=== PATIENT | male | born 1945 | race Caucasian/White ===

== ENCOUNTER 2025-03-04 02:29 | Inpatient (IN) | payer SELFPAY ==
[2025-03-04] VITALS (53 sets, daily range): BP systolic 85–163; BP diastolic 62–115; PULSE 57–71; RESP 10–23; TEMP 36.4–37.0296; O2SAT 93–99
[~2025-03-04] VITALS: Ht 162.6 cm; Wt 64.2 kg
[2025-03-04] MEDS: LEVETIRACETAM 1000MG PREMIX 100 ML IV ONE (03:07)
[2025-03-04] MEDS: LORAZEPAM 2MG/ML UD SYRINGE IV NR (03:08)
[2025-03-04 03:31] LABS: BASOPHILS % 0.3 % (0.0-2.0); EOSINOPHILS % 0.2 % (0.0-5.0); HEMATOCRIT. 49.9 % (42.0-52.0); HEMOGLOBIN. 15.9 g/dL (14.0-18.0); LYMPHOCYTES % 36.1 % (20.0-50.0); MEAN PLATELET VOLUME 10.7 fl (7.4-10.4); MONOCYTES % 8.2 % (2.0-8.0); NEUTROPHILS % 55.2 % (40.0-76.0); PLATELET 133 x1000/uL (130-400); RED BLOOD CELL COUNT 4.66 mill/uL (4.7-6.1); RED CELL DISTRIBUTION WIDTH 14.8 % (11.6-14.6)
[2025-03-04 03:39] LABS: CREATININE 2.5 mg/dL (0.6-1.3); INR 1.1; UREA NITROGEN BLOOD 25 mg/dL (9-23)
[2025-03-04 03:40] LABS: TROPONIN I HIGH SENSITIVITY 31 ng/L (3.0-53)
[2025-03-04 03:41] LABS: ASPARTATE AMINOTRANSFERASE 48 IU/L (<34); BILIRUBIN DIRECT 0.3 mg/dL (<=3.0)
[2025-03-04 03:42] LABS: BILIRUBIN TOTAL 0.9 mg/dL (0.1-1.0); PHOSPHORUS 3.1 mg/dL (2.5-4.9); PROTEIN TOTAL 7.4 g/dL (6.0-8.3)
[2025-03-04 04:13] LABS: BG BASE EXCESS -3.5 mmol/L (-2.0-3.0); BG CARBOXYHEMOGLOBIN 1.4 % (0.5-1.5); BG DEOXYHEMOGLOBIN 3.9 % (0.0-5.0); BG HCO3 ACT 23.0 mmol/L (21.0-28.0); BG METHEMOGLOBIN 0.1 % (0.5-1.5); BG OXYGEN SATURATION 96.0 % (94.0-98.0); BG OXYHEMOGLOBIN 94.6 % (94.0-98.0); BG PCO2 46.7 mmHg (35.0-48.0); BG PH 7.311 (7.350-7.450); BG PO2 92.0 mmHg (83.0-108.0); BG SAMPLE SITE RIGHT RADIAL; BG TOTAL HEMOGLOBIN 15.5 g/dL (13.5-17.5); BG VENT MODE ROOM AIR
[2025-03-04] MEDS: SODIUM CHLORIDE 0.9% (SEPSIS BOLUS) IV NR (04:56)
[2025-03-04] MEDS: PIPERACILLIN/TAZO 3.375G/50ML 50 ML IV NR (04:56)
[2025-03-04 04:57] LABS: INFLUENZA TYPE A Presumptive Negative (Pres. Neg.)
[2025-03-04] MEDS: KCL 20MEQ/100ML PREMIX 100 ML IV SCH (04:57)
[2025-03-04 04:58] LABS: INFLUENZA TYPE B Presumptive Negative (Pres. Neg.); RESPIRATORY SYNCYTIAL VIRUS Not Detected (Not Detectd)
[2025-03-04] MEDS: VANCOMYCIN 1G PREMIX 200 ML IV NR (06:00)
[2025-03-04] MEDS ORDERED: MAGNESIUM 2 G PREMIX 50 ML IV PRN (08:15)
[2025-03-04] MEDS ORDERED: BLOOD SUGAR DIAGNOSTIC STRIP TEST PRN (08:15)
[2025-03-04] MEDS ORDERED: DEXTROSE 50% WATER 50ML SYRINGE IV PRN (08:15)
[2025-03-04] MEDS: SODIUM CHLORIDE 0.9% 1,000 ML IV SCH (08:29)
[2025-03-04] MEDS: BLOOD SUGAR DIAGNOSTIC STRIP TEST SCH (08:30)
[2025-03-04 08:42] LABS: BG BASE EXCESS 0.9 mmol/L (-2.0-3.0); BG CARBOXYHEMOGLOBIN 0.2 % (0.5-1.5); BG DEOXYHEMOGLOBIN 5.6 % (0.0-5.0); BG FRACTION INSPIRED OXYGEN 21; BG HCO3 ACT 26.2 mmol/L (21.0-28.0); BG METHEMOGLOBIN 0.3 % (0.5-1.5); BG OXYGEN SATURATION 94.4 % (94.0-98.0); BG OXYHEMOGLOBIN 93.9 % (94.0-98.0); BG PCO2 43.7 mmHg (35.0-48.0); BG PH 7.395 (7.350-7.450); BG PO2 77.1 mmHg (83.0-108.0); BG SAMPLE SITE LEFT BRACHIAL; BG TOTAL HEMOGLOBIN 15.4 g/dL (13.5-17.5); BG VENT MODE ROOM AIR
[2025-03-04] MEDS ORDERED: IPRATROPIUM/ALBUTEROL 0.5-3(2.5)MG/3ML NEB HHN PRN (09:15)
[2025-03-04] MEDS ORDERED: DOCUSATE SODIUM 100MG CAPSULE PO PRN (09:15)
[2025-03-04] MEDS ORDERED: ENOXAPARIN 80MG/0.8ML SYR SUBCUT SCH (10:00)
[2025-03-04 11:45] LABS: CLARITY URINE CLEAR (CLEAR); COLOR URINE YELLOW (YELLOW); GLUCOSE URINE 3+ (NEGATIVE); KETONES URINE NEGATIVE (NEGATIVE); LEUKOCYTE ESTERASE URINE NEGATIVE (NEGATIVE); NITRITE URINE NEGATIVE (NEGATIVE); OCCULT BLOOD URINE NEGATIVE (NEGATIVE); PH URINE 7.5 (4.5-8.0); PROTEIN URINE NEGATIVE (NEGATIVE); SPECIFIC GRAVITY URINE 1.016 (1.005-1.030); UROBILINOGEN URINE 0.2 E.U./dL (0.2-1.0)
[2025-03-04 11:53] LABS: TROPONIN I HIGH SENSITIVITY 100 ng/L (3.0-53)
[2025-03-04 12:42] LABS: *AMPHETAMINES SCREEN URINE NEGATIVE (NEGATIVE); *BARBITURATES SCREEN URINE NEGATIVE (NEGATIVE); *BENZODIAZEPINES SCREEN URINE NEGATIVE (NEGATIVE); *COCAINE SCREEN URINE NEGATIVE (NEGATIVE); CANNABINOID URINE SCREEN NEGATIVE (NEGATIVE); METHADONE URINE SCREEN NEGATIVE (NEGATIVE); OPIATES URINE SCREEN NEGATIVE (NEGATIVE); PHENCYCLIDINE URINE SCREEN NEGATIVE (NEGATIVE)
[2025-03-04 12:43] LABS: ECSTASY MDMA SCREEN URINE NEGATIVE (NEGATIVE)
[2025-03-04 12:46] LABS: RBC URINE NONE SEEN /hpf (0-2); SQUAMOUS EPITHELIAL CELL URINE RARE /lpf (RARE/1+); WBC URINE NONE SEEN /hpf (0-2)
[2025-03-04 12:47] LABS: BACTERIA URINE NONE SEEN
[2025-03-04 13:21] LABS: CREATININE 2.0 mg/dL (0.6-1.3); UREA NITROGEN BLOOD 23.0 mg/dL (9-23)
[2025-03-04 13:22] LABS: CREATINE KINASE MB FRACTION 3.3 ng/mL (0.5-3.6)
[2025-03-04 13:33] LABS: BASOPHILS % 0.4 % (0.0-2.0); EOSINOPHILS % 0.4 % (0.0-5.0); HEMATOCRIT. 43.6 % (42.0-52.0); HEMOGLOBIN. 14.9 g/dL (14.0-18.0); LYMPHOCYTES % 14.1 % (20.0-50.0); MEAN PLATELET VOLUME 9.9 fl (7.4-10.4); MONOCYTES % 8.6 % (2.0-8.0); NEUTROPHILS % 76.5 % (40.0-76.0); PLATELET 104 x1000/uL (130-400); RED BLOOD CELL COUNT 4.31 mill/uL (4.7-6.1); RED CELL DISTRIBUTION WIDTH 14.2 % (11.6-14.6)
[2025-03-04] MEDS: KCL 20MEQ/100ML PREMIX 100 ML IV PRN (13:56)
[2025-03-04] MEDS: INSULIN REGULAR 100U/100ML PMX 100 ML IV SCH (13:57)
[2025-03-04] MEDS: DILTIAZEM HCL 30MG TABLET PO SCH (13:59)
[2025-03-04] MEDS: PANTOPRAZOLE SODIUM 40 MG/VIAL IV SCH (14:05)
[2025-03-04] MEDS: ENOXAPARIN 80MG/0.8ML SYR SUBCUT SCH (14:05)
[2025-03-04] MEDS ORDERED: ALLO300T2 MT (14:23)
[2025-03-04] MEDS ORDERED: METH4TAB MT (14:23)
[2025-03-04] MEDS ORDERED: ASPI-1497 MT (14:23)
[2025-03-04 16:34] LABS: PHOSPHORUS 1.4 mg/dL (2.5-4.9)
[2025-03-04] MEDS: DEXT 5%/0.9% NACL 1,000 ML IV SCH (16:48)
[2025-03-04] MEDS: MAGNESIUM 2 G PREMIX 50 ML IV PRN (16:54)
[2025-03-04] MEDS: SODIUM PHOSPHATE 15 MMOL in SODIUM CHLORIDE 0.9% 245 ML IV PRN (18:48)
[2025-03-05] VITALS (87 sets, daily range): BP systolic 97–154; BP diastolic 60–110; PULSE 63–105; RESP 10–26; TEMP 36.7–37.1; O2SAT 95–100
[2025-03-05 02:53] LABS: CREATININE 1.4 mg/dL (0.6-1.3); UREA NITROGEN BLOOD 17.0 mg/dL (9-23)
[2025-03-05 02:54] LABS: PHOSPHORUS 2.3 mg/dL (2.5-4.9)
[2025-03-05] MEDS ORDERED: SODIUM PHOSPHATE 15 MMOL in SODIUM CHLORIDE 0.9% 245 ML IV PRN (04:00)
[2025-03-05] MEDS: POTASSIUM CHLORIDE 40 MEQ in SODIUM CHLORIDE 0.9% 230 ML IV PRN (04:07)
[2025-03-05 05:51] LABS: BASOPHILS % 0.5 % (0.0-2.0); EOSINOPHILS % 0.6 % (0.0-5.0); HEMATOCRIT. 39.6 % (42.0-52.0); HEMOGLOBIN. 13.8 g/dL (14.0-18.0); LYMPHOCYTES % 18.9 % (20.0-50.0); MEAN PLATELET VOLUME 9.4 fl (7.4-10.4); MONOCYTES % 9.6 % (2.0-8.0); NEUTROPHILS % 70.4 % (40.0-76.0); PLATELET 106 x1000/uL (130-400); RED BLOOD CELL COUNT 3.96 mill/uL (4.7-6.1); RED CELL DISTRIBUTION WIDTH 14.5 % (11.6-14.6)
[2025-03-05 05:58] LABS: INR 1.1
[2025-03-05 06:10] LABS: CREATININE 1.3 mg/dL (0.6-1.3); PHOSPHORUS 2.0 mg/dL (2.5-4.9)
[2025-03-05 06:11] LABS: LDL CHOLESTEROL 73 mg/dL (5-100); TRIGLYCERIDE 358 mg/dL (0-150); UREA NITROGEN BLOOD 11 mg/dL (9-23)
[2025-03-05 06:12] LABS: ASPARTATE AMINOTRANSFERASE 58 IU/L (<34)
[2025-03-05 06:13] LABS: BILIRUBIN DIRECT 0.5 mg/dL (<=3.0); BILIRUBIN TOTAL 1.2 mg/dL (0.1-1.0)
[2025-03-05 06:20] LABS: TROPONIN I HIGH SENSITIVITY 58 ng/L (3.0-53)
[2025-03-05 07:03] LABS: PROTEIN TOTAL 4.8 g/dL (6.0-8.3)
[2025-03-05] MEDS: BLOOD SUGAR DIAGNOSTIC STRIP TEST SCH (08:39)
[2025-03-05 09:57] LABS: CREATININE 1.3 mg/dL (0.6-1.3); UREA NITROGEN BLOOD 10 mg/dL (9-23)
[2025-03-05 09:59] LABS: PHOSPHORUS 1.1 mg/dL (2.5-4.9)
[2025-03-05 15:50] LABS: CREATININE 1.2 mg/dL (0.6-1.3); UREA NITROGEN BLOOD 7 mg/dL (9-23)
[2025-03-05 15:52] LABS: PHOSPHORUS 1.1 mg/dL (2.5-4.9)
[2025-03-05 17:00] LABS: PHOSPHORUS 1.3 mg/dL (2.5-4.9)
[2025-03-05] MEDS: MAGNESIUM 2 G PREMIX 50 ML IV PRN (17:39)
[2025-03-05 23:43] LABS: PHOSPHORUS 1.5 mg/dL (2.5-4.9)
[2025-03-06] VITALS (86 sets, daily range): BP systolic 86–133; BP diastolic 58–93; PULSE 81–99; RESP 12–26; TEMP 36.2–36.8; O2SAT 93–98
[2025-03-06 04:30] LABS: CREATININE 1.3 mg/dL (0.6-1.3); UREA NITROGEN BLOOD 7 mg/dL (9-23)
[2025-03-06 04:32] LABS: PHOSPHORUS 1.9 mg/dL (2.5-4.9)
[2025-03-06] MEDS: ACETAMINOPHEN 325MG TABLET PO PRN (05:07)
[2025-03-06] MEDS: SODIUM PHOSPHATE 15 MMOL in SODIUM CHLORIDE 0.9% 245 ML IV PRN (06:26)
[2025-03-06 18:24] LABS: CREATININE 1.3 mg/dL (0.6-1.3); UREA NITROGEN BLOOD < 5 mg/dL (9-23)
[2025-03-06 20:53] LABS: CREATININE 1.3 mg/dL (0.6-1.3); UREA NITROGEN BLOOD < 5 mg/dL (9-23)
[2025-03-07] VITALS (98 sets, daily range): BP systolic 72–132; BP diastolic 16–88; PULSE 75–111; RESP 11–26; TEMP 36.6–37.2; O2SAT 92–98
[2025-03-07 06:11] LABS: CREATININE 1.4 mg/dL (0.6-1.3); UREA NITROGEN BLOOD 6.0 mg/dL (9-23)
[2025-03-07 06:42] LABS: PHOSPHORUS 0.8 mg/dL (2.5-4.9)
[2025-03-07] MEDS: INSULIN GLARGINE 100 UNITS/ML SUBCUT SCH (11:59)
[2025-03-07 15:00] LABS: CREATININE 1.4 mg/dL (0.6-1.3); UREA NITROGEN BLOOD < 5 mg/dL (9-23)
[2025-03-07 15:02] LABS: PHOSPHORUS 1.8 mg/dL (2.5-4.9)
[2025-03-07] MEDS ORDERED: SODIUM PHOSPHATE 15 MMOL in DEXT 5% WATER 245 ML IV PRN (16:00)
[2025-03-07] MEDS ORDERED: KCL 20MEQ/100ML PREMIX 100 ML IV ONE (16:00)
[2025-03-07] MEDS: KCL 20MEQ/100ML PREMIX 100 ML IV PRN (16:56)
[2025-03-07 17:23] LABS: CREATININE 1.5 mg/dL (0.6-1.3)
[2025-03-07 17:24] LABS: UREA NITROGEN BLOOD 5 mg/dL (9-23)
[2025-03-07 17:26] LABS: PHOSPHORUS 1.3 mg/dL (2.5-4.9)
[2025-03-07 18:51] LABS: CREATININE 1.4 mg/dL (0.6-1.3); UREA NITROGEN BLOOD < 5 mg/dL (9-23)
[2025-03-07] MEDS: SODIUM PHOSPHATE 15 MMOL in SODIUM CHLORIDE 0.9% 245 ML IV PRN (20:18)
[2025-03-08] VITALS (93 sets, daily range): BP systolic 96–170; BP diastolic 57–91; PULSE 72–94; RESP 13–28; TEMP 36.2–37.8; O2SAT 84–98
[2025-03-08 00:50] LABS: PLATELET 108 x1000/uL (130-400); RED BLOOD CELL COUNT 3.26 mill/uL (4.7-6.1); RED CELL DISTRIBUTION WIDTH 14.9 % (11.6-14.6)
[2025-03-08 01:04] LABS: CREATININE 1.4 mg/dL (0.6-1.3); UREA NITROGEN BLOOD < 5 mg/dL (9-23)
[2025-03-08 01:06] LABS: PHOSPHORUS 1.6 mg/dL (2.5-4.9)
[2025-03-08] MEDS: DEXT 5%/0.9% NACL 1,000 ML IV SCH (01:20)
[2025-03-08] MEDS: ONDANSETRON HCL 4MG/2ML INJ IV PRN (01:47)
[2025-03-08 05:59] LABS: PHOSPHORUS 1.6 mg/dL (2.5-4.9)
[2025-03-08] MEDS: INSULIN REGULAR 100U/100ML PMX 100 ML IV SCH (06:13)
[2025-03-08 06:54] LABS: CREATININE 1.4 mg/dL (0.6-1.3); UREA NITROGEN BLOOD < 5 mg/dL (9-23)
[2025-03-08] MEDS: POTASSIUM CHLORIDE 40 MEQ in SODIUM CHLORIDE 0.9% 250 ML IV PRN (08:25)
[2025-03-08 11:01] LABS: BASOPHILS % 0.3 % (0.0-2.0); EOSINOPHILS % 0.6 % (0.0-5.0); HEMATOCRIT. 36.5 % (42.0-52.0); HEMOGLOBIN. 12.4 g/dL (14.0-18.0); LYMPHOCYTES % 11.9 % (20.0-50.0); MEAN PLATELET VOLUME 9.9 fl (7.4-10.4); MONOCYTES % 11.9 % (2.0-8.0); NEUTROPHILS % 75.3 % (40.0-76.0); PLATELET 124 x1000/uL (130-400); RED BLOOD CELL COUNT 3.53 mill/uL (4.7-6.1); RED CELL DISTRIBUTION WIDTH 15.0 % (11.6-14.6)
[2025-03-08 11:22] LABS: CREATININE 1.4 mg/dL (0.6-1.3)
[2025-03-08 11:23] LABS: UREA NITROGEN BLOOD < 5 mg/dL (9-23)
[2025-03-08 11:25] LABS: PHOSPHORUS 1.8 mg/dL (2.5-4.9)
[2025-03-08] MEDS ORDERED: LIDOCAINE HCL 1% 10 MG/ML 10ML VIAL ONE (12:33)
[2025-03-08 13:48] LABS: CREATININE 1.3 mg/dL (0.6-1.3); UREA NITROGEN BLOOD < 5 mg/dL (9-23)
[2025-03-08 13:51] LABS: PHOSPHORUS 1.6 mg/dL (2.5-4.9)
[2025-03-08] MEDS: SODIUM PHOSPHATE 15 MMOL in SODIUM CHLORIDE 0.9% 245 ML IV PRN (14:33)
[2025-03-08] MEDS: FAMOTIDINE 20MG/2ML VIAL IV SCH (17:11)
[2025-03-08 19:30] LABS: CREATININE 1.3 mg/dL (0.6-1.3); TROPONIN I HIGH SENSITIVITY 12 ng/L (3.0-53); UREA NITROGEN BLOOD < 5 mg/dL (9-23)
[2025-03-08 19:32] LABS: PHOSPHORUS 2.1 mg/dL (2.5-4.9)
[2025-03-08] MEDS: ACETAMINOPHEN 325MG TABLET PO PRN (19:57)
[2025-03-09] VITALS (76 sets, daily range): BP systolic 112–159; BP diastolic 53–93; PULSE 70–89; RESP 12–29; TEMP 36.7–37.6; O2SAT 90–99
[2025-03-09 01:17] LABS: CREATININE 1.3 mg/dL (0.6-1.3)
[2025-03-09 01:18] LABS: UREA NITROGEN BLOOD < 5 mg/dL (9-23)
[2025-03-09 01:20] LABS: PHOSPHORUS 2.6 mg/dL (2.5-4.9)
[2025-03-09] MEDS: MAGNESIUM 2 G PREMIX 50 ML IV PRN (01:57)
[2025-03-09 05:09] LABS: CREATININE 1.3 mg/dL (0.6-1.3)
[2025-03-09 05:10] LABS: UREA NITROGEN BLOOD < 5 mg/dL (9-23)
[2025-03-09 05:12] LABS: PHOSPHORUS 2.4 mg/dL (2.5-4.9)
[2025-03-09 09:16] LABS: CREATININE 1.3 mg/dL (0.6-1.3); UREA NITROGEN BLOOD < 5 mg/dL (9-23)
[2025-03-09 09:18] LABS: PHOSPHORUS 2.4 mg/dL (2.5-4.9)
[2025-03-09 09:39] LABS: CREATININE 1.3 mg/dL (0.6-1.3); UREA NITROGEN BLOOD < 5 mg/dL (9-23)
[2025-03-09] MEDS: INSULIN GLARGINE 100 UNITS/ML SUBCUT SCH (10:31)
[2025-03-09 11:13] LABS: PHOSPHORUS 2.3 mg/dL (2.5-4.9)
[2025-03-09 13:24] LABS: CREATININE 1.3 mg/dL (0.6-1.3); UREA NITROGEN BLOOD < 5 mg/dL (9-23)
[2025-03-09 13:26] LABS: PHOSPHORUS 2.1 mg/dL (2.5-4.9)
[2025-03-09] MEDS: IPRATROPIUM/ALBUTEROL 0.5-3(2.5)MG/3ML NEB HHN PRN (16:22)
[2025-03-09] MEDS: FAMOTIDINE 20MG/2ML VIAL IV SCH (17:04)
[2025-03-09 17:11] LABS: CREATININE 1.3 mg/dL (0.6-1.3); UREA NITROGEN BLOOD < 5 mg/dL (9-23)
[2025-03-09 17:13] LABS: PHOSPHORUS 1.8 mg/dL (2.5-4.9)
[2025-03-09 21:43] LABS: CREATININE 1.3 mg/dL (0.6-1.3); UREA NITROGEN BLOOD < 5 mg/dL (9-23)
[2025-03-09 21:45] LABS: PHOSPHORUS 2.4 mg/dL (2.5-4.9)
[2025-03-10] VITALS (39 sets, daily range): BP systolic 129–161; BP diastolic 60–87; PULSE 83–102; RESP 12–26; TEMP 36.2–36.8; O2SAT 93–99
[2025-03-10 01:06] LABS: CREATININE 1.3 mg/dL (0.6-1.3); UREA NITROGEN BLOOD < 5 mg/dL (9-23)
[2025-03-10 01:08] LABS: PHOSPHORUS 2.8 mg/dL (2.5-4.9)
[2025-03-10 05:34] LABS: BASOPHILS % 0.6 % (0.0-2.0); EOSINOPHILS % 1.4 % (0.0-5.0); HEMATOCRIT. 34.3 % (42.0-52.0); HEMOGLOBIN. 11.5 g/dL (14.0-18.0); LYMPHOCYTES % 11.3 % (20.0-50.0); MEAN PLATELET VOLUME 9.5 fl (7.4-10.4); MONOCYTES % 13.4 % (2.0-8.0); NEUTROPHILS % 73.3 % (40.0-76.0); PLATELET 131 x1000/uL (130-400); RED BLOOD CELL COUNT 3.29 mill/uL (4.7-6.1); RED CELL DISTRIBUTION WIDTH 15.7 % (11.6-14.6)
[2025-03-10 05:54] LABS: CREATININE 1.3 mg/dL (0.6-1.3); UREA NITROGEN BLOOD < 5 mg/dL (9-23)
[2025-03-10 05:56] LABS: PHOSPHORUS 2.1 mg/dL (2.5-4.9)
[2025-03-10] MEDS: CITRIC ACID/SODIUM CITRATE SOLN 30ML UDC PO SCH (09:14)
[2025-03-10] MEDS: POTASSIUM PHOSPHATE 20 MMOL in DEXT 5% WATER 243.3333 ML IV SCH (09:15)
[2025-03-10] MEDS: INSULIN LISPRO 100 UNITS/ML SUBCUT SCH (12:00)
[2025-03-10] MEDS: DEXTROSE 50% WATER 50ML SYRINGE IV PRN (21:39)
[2025-03-10] MEDS: SIMETHICONE 80MG TABLET CHEW PO SCH (21:42)
[2025-03-10] MEDS: ENOXAPARIN 60MG/0.6ML SYR SUBCUT SCH (21:42)
[2025-03-10] MEDS: HYDROCODONE/ACETAMINOPHEN 5/325MG TABLET PO PRN (21:45)
[2025-03-11] VITALS: BP 125/78; PULSE 111; RESP 19; TEMP 37.4; O2SAT 98
[2025-03-11 04:00] VITALS: BP 127/73; PULSE 91; RESP 19; TEMP 36.7; O2SAT 100
[2025-03-11 08:00] VITALS: BP 125/80; PULSE 88; RESP 18; TEMP 36.6; O2SAT 98
[2025-03-11] MEDS ORDERED: DILT30TA3 PO (09:47)
[2025-03-11] MEDS ORDERED: CITR473S PO (09:47)
[2025-03-11] MEDS ORDERED: APIX5TAB MT (09:47)
[2025-03-11] MEDS ORDERED: METF-414 MT (09:47)
[2025-03-11] MEDS ORDERED: LANTUSUD SUBCUT (09:47)
[2025-03-11] MEDS ORDERED: FAMO20TA8 MT (09:47)
[2025-03-11] MEDS ORDERED: INSULIN GLARGINE 100 UNITS/ML SUBCUT SCH (10:00)
[2025-03-11 12:00] VITALS: BP 119/77; PULSE 92; RESP 18; TEMP 36.3; O2SAT 96
[2025-03-11] MEDS: INSULIN GLARGINE 100 UNITS/ML SUBCUT SCH (14:24)
[2025-03-11 16:00] VITALS: BP 154/79; PULSE 97; RESP 18; TEMP 36.7; O2SAT 97
[2025-03-11 20:00] VITALS: BP 137/89; PULSE 88; RESP 19; TEMP 36.3; O2SAT 95
[2025-03-12] VITALS: BP 165/79; PULSE 96; RESP 20; TEMP 36.3; O2SAT 96
[2025-03-12] MEDS: CLONIDINE 0.1MG TABLET PO PRN (00:54)
[2025-03-12 01:34] LABS: BASOPHILS % 0.8 % (0.0-2.0); EOSINOPHILS % 1.5 % (0.0-5.0); HEMATOCRIT. 32.3 % (42.0-52.0); HEMOGLOBIN. 11.0 g/dL (14.0-18.0); LYMPHOCYTES % 19.2 % (20.0-50.0); MEAN PLATELET VOLUME 9.5 fl (7.4-10.4); MONOCYTES % 14.3 % (2.0-8.0); NEUTROPHILS % 64.2 % (40.0-76.0); PLATELET 159 x1000/uL (130-400); RED BLOOD CELL COUNT 3.11 mill/uL (4.7-6.1); RED CELL DISTRIBUTION WIDTH 15.6 % (11.6-14.6)
[2025-03-12 01:47] LABS: CREATININE 1.4 mg/dL (0.6-1.3); UREA NITROGEN BLOOD 8.0 mg/dL (9-23)
[2025-03-12 04:00] VITALS: BP 181/81; PULSE 101; RESP 22; TEMP 37; O2SAT 96
[2025-03-12] MEDS: HYDRALAZINE 20MG/ML VIAL IV PRN (05:12)
[2025-03-12] MEDS: INSULIN LISPRO 100 UNITS/ML SUBCUT SCH (07:36)
[2025-03-12 08:00] VITALS: BP 104/57; PULSE 90; RESP 16; TEMP 36.1; O2SAT 96
[2025-03-12] MEDS: INSULIN GLARGINE 100 UNITS/ML SUBCUT SCH (10:00)
[2025-03-12 12:00] VITALS: BP 113/61; PULSE 90; RESP 16; TEMP 35.6; O2SAT 96
[2025-03-12] MEDS: FUROSEMIDE 20MG/2ML VIAL IVP NR (15:19)
[2025-03-12 16:00] VITALS: BP 97/65; PULSE 96; RESP 16; TEMP 36.4; O2SAT 96
[2025-03-12 20:00] VITALS: BP 164/87; PULSE 104; RESP 19; TEMP 36.7; O2SAT 98
[2025-03-13] VITALS: BP 104/59; PULSE 101; RESP 18; TEMP 36.6; O2SAT 97
[2025-03-13 04:00] VITALS: BP 121/50; PULSE 104; RESP 17; TEMP 36.1; O2SAT 98
[2025-03-13 06:45] LABS: BASOPHILS % 0.6 % (0.0-2.0); EOSINOPHILS % 1.1 % (0.0-5.0); HEMATOCRIT. 31.6 % (42.0-52.0); HEMOGLOBIN. 10.7 g/dL (14.0-18.0); LYMPHOCYTES % 16.5 % (20.0-50.0); MEAN PLATELET VOLUME 9.2 fl (7.4-10.4); MONOCYTES % 12.2 % (2.0-8.0); NEUTROPHILS % 69.6 % (40.0-76.0); PLATELET 159 x1000/uL (130-400); RED BLOOD CELL COUNT 3.08 mill/uL (4.7-6.1); RED CELL DISTRIBUTION WIDTH 15.5 % (11.6-14.6)
[2025-03-13 07:02] LABS: CREATININE 1.7 mg/dL (0.6-1.3); UREA NITROGEN BLOOD 12.0 mg/dL (9-23)
[2025-03-13 08:00] VITALS: BP 126/75; PULSE 100; RESP 17; TEMP 35.7; O2SAT 97
[2025-03-13] MEDS: SODIUM CHLORIDE 0.45% 1,000 ML IV SCH (10:55)
[2025-03-13] MEDS: INSULIN GLARGINE 100 UNITS/ML SUBCUT SCH (10:57)
[2025-03-13 12:00] VITALS: BP 120/64; PULSE 95; RESP 16; TEMP 36.1; O2SAT 98
[2025-03-13 16:00] VITALS: BP 118/59; PULSE 96; RESP 16; TEMP 36; O2SAT 97
[2025-03-13 20:00] VITALS: BP 134/67; PULSE 96; RESP 18; TEMP 36.9; O2SAT 98
[2025-03-14] VITALS: BP 136/66; PULSE 106; RESP 20; TEMP 36.8; O2SAT 98
[2025-03-14 04:00] VITALS: BP 139/64; PULSE 103; RESP 19; TEMP 36.8; O2SAT 97
[2025-03-14 08:00] VITALS: BP 128/66; PULSE 98; RESP 17; TEMP 36.1; O2SAT 98
[2025-03-14 12:00] VITALS: BP 132/66; PULSE 94; RESP 15; TEMP 37.7; O2SAT 97
[2025-03-14] MEDS: FUROSEMIDE 40MG/4ML VIAL IVP SCH (13:48)
[2025-03-14 16:00] VITALS: BP 130/65; PULSE 98; RESP 17; TEMP 37.2; O2SAT 96
[2025-03-14 20:00] VITALS: BP 136/70; PULSE 97; PULSE 98; RESP 18; TEMP 36.7; O2SAT 97; O2SAT 98
[2025-03-15] VITALS: BP 121/62; PULSE 98; RESP 18; TEMP 36.6; O2SAT 96
[2025-03-15 04:00] VITALS: BP 128/70; PULSE 97; RESP 18; TEMP 36.7; O2SAT 96
[2025-03-15 06:41] LABS: BASOPHILS % 0.5 % (0.0-2.0); EOSINOPHILS % 1.3 % (0.0-5.0); HEMATOCRIT. 31.6 % (42.0-52.0); HEMOGLOBIN. 10.8 g/dL (14.0-18.0); LYMPHOCYTES % 12.1 % (20.0-50.0); MEAN PLATELET VOLUME 9.2 fl (7.4-10.4); MONOCYTES % 11.9 % (2.0-8.0); NEUTROPHILS % 74.2 % (40.0-76.0); PLATELET 185 x1000/uL (130-400); RED BLOOD CELL COUNT 3.12 mill/uL (4.7-6.1); RED CELL DISTRIBUTION WIDTH 15.6 % (11.6-14.6)
[2025-03-15 07:12] LABS: CREATININE 1.5 mg/dL (0.6-1.3); UREA NITROGEN BLOOD 12.0 mg/dL (9-23)
[2025-03-15 08:00] VITALS: BP 117/62; PULSE 92; RESP 16; TEMP 37.2; O2SAT 97
[2025-03-15] MEDS ORDERED: HYDROCODONE/ACETAMINOPHEN 5/325MG TABLET PO PRN (09:30)
[2025-03-15] MEDS ORDERED: HYDROCODONE/ACETAMINOPHEN 10/325MG TABLET PO PRN (09:30)
[2025-03-15] MEDS: POTASSIUM CHLORIDE 20MEQ TABLET SR PO ONE (11:00)
[2025-03-15] MEDS: POTASSIUM CHLORIDE 20MEQ TABLET SR PO NR ×2 (11:53→14:38)
[2025-03-15] MEDS: KCL 20MEQ/100ML PREMIX 100 ML IV SCH (11:54)
[2025-03-15 12:00] VITALS: BP 129/73; PULSE 96; RESP 18; TEMP 37.2; O2SAT 99
[2025-03-15 12:15] LABS: PHOSPHORUS 2.6 mg/dL (2.5-4.9)
[2025-03-15] MEDS: MAGNESIUM 2G PREMIX 50ML IV ONE (13:15)
[2025-03-15 16:00] VITALS: BP 104/61; PULSE 84; RESP 18; TEMP 36.4; O2SAT 97
[2025-03-15] MEDS: MAGNESIUM 4 G PREMIX 100 ML IV ONE (19:09)
[2025-03-15 20:00] VITALS: BP 112/62; PULSE 82; RESP 20; TEMP 36.4; O2SAT 95
[2025-03-16] VITALS: BP 107/65; PULSE 87; RESP 20; TEMP 36.5; O2SAT 87
[2025-03-16 04:00] VITALS: BP 113/57; PULSE 87; RESP 20; TEMP 36.6; O2SAT 96
[2025-03-16 06:12] LABS: CREATININE 1.6 mg/dL (0.6-1.3); UREA NITROGEN BLOOD 16 mg/dL (9-23)
[2025-03-16 06:21] LABS: BASOPHILS % 0.4 % (0.0-2.0); EOSINOPHILS % 2.5 % (0.0-5.0); HEMATOCRIT. 29.8 % (42.0-52.0); HEMOGLOBIN. 10.2 g/dL (14.0-18.0); LYMPHOCYTES % 13.5 % (20.0-50.0); MEAN PLATELET VOLUME 9.6 fl (7.4-10.4); MONOCYTES % 8.8 % (2.0-8.0); NEUTROPHILS % 74.8 % (40.0-76.0); PLATELET 180 x1000/uL (130-400); RED BLOOD CELL COUNT 2.94 mill/uL (4.7-6.1); RED CELL DISTRIBUTION WIDTH 15.5 % (11.6-14.6)
[2025-03-16 08:00] VITALS: BP 104/55; PULSE 67; RESP 17; TEMP 36.3; O2SAT 99
[2025-03-16] MEDS: POTASSIUM CHLORIDE 20MEQ TABLET SR PO NR (09:30)
[2025-03-16] MEDS: MAGNESIUM 2 G PREMIX 50 ML IV NR (09:31)
[2025-03-16] MEDS: MAGNESIUM 4 G PREMIX 100 ML IV NR (11:09)
[2025-03-16 12:00] VITALS: BP 101/58; PULSE 84; RESP 18; TEMP 36.3; O2SAT 99
[2025-03-16 16:00] VITALS: BP 120/64; PULSE 82; RESP 18; TEMP 36.4; O2SAT 97
[2025-03-16 20:00] VITALS: BP 123/59; PULSE 87; RESP 18; TEMP 36.1; O2SAT 96
[2025-03-17] VITALS: BP 120/60; PULSE 88; RESP 19; TEMP 36.4; O2SAT 97
[2025-03-17 04:00] VITALS: BP 126/56; PULSE 85; RESP 19; TEMP 36.6; O2SAT 96
[2025-03-17 07:01] LABS: PHOSPHORUS 2.4 mg/dL (2.5-4.9)
[2025-03-17 08:00] VITALS: BP 106/60; PULSE 89; RESP 18; TEMP 36.7; O2SAT 91
[2025-03-17 12:00] VITALS: BP 115/61; PULSE 80; RESP 18; TEMP 36.8; O2SAT 96
[2025-03-17 16:00] VITALS: BP 113/57; PULSE 83; RESP 18; TEMP 36.6; O2SAT 96
[2025-03-17 20:00] VITALS: BP 120/62; PULSE 81; RESP 19; TEMP 36.7; O2SAT 96
[2025-03-18] VITALS: BP 115/60; PULSE 83; RESP 19; TEMP 36.6; O2SAT 96
[2025-03-18 04:00] VITALS: BP 116/55; PULSE 86; RESP 18; TEMP 36.4; O2SAT 96
[2025-03-18 06:44] LABS: BASOPHILS % 1.2 % (0.0-2.0); EOSINOPHILS % 3.4 % (0.0-5.0); HEMATOCRIT. 32.6 % (42.0-52.0); HEMOGLOBIN. 10.9 g/dL (14.0-18.0); LYMPHOCYTES % 18.2 % (20.0-50.0); MEAN PLATELET VOLUME 9.7 fl (7.4-10.4); MONOCYTES % 10.8 % (2.0-8.0); NEUTROPHILS % 66.4 % (40.0-76.0); PLATELET 244 x1000/uL (130-400); RED BLOOD CELL COUNT 3.17 mill/uL (4.7-6.1); RED CELL DISTRIBUTION WIDTH 15.3 % (11.6-14.6)
[2025-03-18 06:56] LABS: CREATININE 1.6 mg/dL (0.6-1.3)
[2025-03-18 06:57] LABS: UREA NITROGEN BLOOD 14 mg/dL (9-23)
[2025-03-18 06:59] LABS: PHOSPHORUS 2.5 mg/dL (2.5-4.9)
[2025-03-18 08:00] VITALS: BP 124/61; PULSE 82; RESP 19; TEMP 37.1; O2SAT 95
[2025-03-18] MEDS: POTASSIUM CHLORIDE 20MEQ TABLET SR PO NR (09:47)
[2025-03-18] MEDS: MAGNESIUM 2 G PREMIX 50 ML IV SCH (09:47)
[2025-03-18 12:00] VITALS: BP 100/52; PULSE 83; RESP 15; TEMP 36.9; O2SAT 95
[2025-03-18] MEDS ORDERED: NALOXONE HCL 0.4MG/ML VIAL IV PRN (13:45)
[2025-03-18 16:00] VITALS: BP 116/63; PULSE 77; RESP 19; TEMP 36.5; O2SAT 95
[2025-03-18 20:00] VITALS: BP 112/63; PULSE 82; RESP 18; TEMP 36.7; O2SAT 98
[2025-03-19] VITALS: BP 122/66; PULSE 79; RESP 18; TEMP 36.6; O2SAT 97
[2025-03-19 04:00] VITALS: BP 111/61; PULSE 83; RESP 18; TEMP 36.6; O2SAT 96
[2025-03-19 07:13] LABS: BASOPHILS % 1.2 % (0.0-2.0); EOSINOPHILS % 5.6 % (0.0-5.0); HEMATOCRIT. 30.3 % (42.0-52.0); HEMOGLOBIN. 10.2 g/dL (14.0-18.0); LYMPHOCYTES % 19.9 % (20.0-50.0); MEAN PLATELET VOLUME 9.2 fl (7.4-10.4); MONOCYTES % 13.9 % (2.0-8.0); NEUTROPHILS % 59.4 % (40.0-76.0); PLATELET 251 x1000/uL (130-400); RED BLOOD CELL COUNT 2.98 mill/uL (4.7-6.1); RED CELL DISTRIBUTION WIDTH 15.3 % (11.6-14.6)
[2025-03-19 07:18] LABS: CREATININE 1.7 mg/dL (0.6-1.3); UREA NITROGEN BLOOD 15 mg/dL (9-23)
[2025-03-19 07:20] LABS: PHOSPHORUS 2.1 mg/dL (2.5-4.9)
[2025-03-19 08:00] VITALS: BP 110/60; PULSE 81; RESP 17; TEMP 36.1; O2SAT 98
[2025-03-19] MEDS ORDERED: METF-414 MT (08:29)
[2025-03-19] MEDS: MAGNESIUM 2 G PREMIX 50 ML IV NR (08:57)
[2025-03-19] MEDS: POTASSIUM PHOSPHATE 20 MMOL in DEXT 5% WATER 243.3333 ML IV NR (11:57)
[2025-03-19 12:00] VITALS: BP 106/59; PULSE 80; RESP 18; TEMP 35.6; O2SAT 98
[2025-03-19 16:00] VITALS: BP 109/57; PULSE 78; RESP 16; TEMP 36.2; O2SAT 95
[2025-03-19 20:00] VITALS: BP 123/68; PULSE 82; RESP 20; TEMP 36.6; O2SAT 100
[2025-03-20] VITALS: BP 116/66; PULSE 92; RESP 20; TEMP 36.4; O2SAT 100
[2025-03-20 04:00] VITALS: BP 107/58; RESP 20; TEMP 36.6; O2SAT 100
[2025-03-20 08:00] VITALS: BP 108/58; PULSE 82; RESP 20; TEMP 37; O2SAT 94
[2025-03-20 12:00] VITALS: BP 110/60; PULSE 84; RESP 20; TEMP 36.8; O2SAT 100
[2025-03-20 16:00] VITALS: BP 115/62; PULSE 81; RESP 20; TEMP 37; O2SAT 98
[2025-03-20 20:00] VITALS: BP 118/61; PULSE 78; RESP 18; TEMP 36.7; O2SAT 96
[2025-03-20 22:11] LABS: CREATININE 1.8 mg/dL (0.6-1.3); UREA NITROGEN BLOOD 15 mg/dL (9-23)
[2025-03-20 22:14] LABS: PHOSPHORUS 2.5 mg/dL (2.5-4.9)
[2025-03-21] VITALS: BP 122/85; PULSE 96; RESP 18; TEMP 37.3; O2SAT 95
[2025-03-21] MEDS: MAGNESIUM 2 G PREMIX 50 ML IV NR (03:31)
[2025-03-21] MEDS: POTASSIUM CHLORIDE 20MEQ TABLET SR PO NR (03:31)
[2025-03-21 04:00] VITALS: BP 117/55; PULSE 79; RESP 19; TEMP 37.4; O2SAT 95
[2025-03-21 08:00] VITALS: BP 121/66; PULSE 77; RESP 16; TEMP 36.6; O2SAT 98
[2025-03-21 09:40] LABS: HEMATOCRIT. 33.6 % (42.0-52.0); HEMOGLOBIN. 11.5 g/dL (14.0-18.0); MEAN PLATELET VOLUME 9.1 fl (7.4-10.4); PLATELET 330 x1000/uL (130-400); RED BLOOD CELL COUNT 3.31 mill/uL (4.7-6.1); RED CELL DISTRIBUTION WIDTH 15.2 % (11.6-14.6)
[2025-03-21 09:57] LABS: CREATININE 1.6 mg/dL (0.6-1.3); UREA NITROGEN BLOOD 16 mg/dL (9-23)
[2025-03-21 09:59] LABS: PHOSPHORUS 2.5 mg/dL (2.5-4.9)
[2025-03-21 12:00] VITALS: BP 100/58; PULSE 80; RESP 18; TEMP 36.5; O2SAT 96
[2025-03-21 12:55] VITALS: BP 119/61; PULSE 61; RESP 18; TEMP 97.5
[2025-03-21 14:51] VITALS: TEMP 97.6
[2025-03-21 16:59] LABS: EOSINOPHILS % MANUAL 1.0 % (0.0-5.0); LYMPHOCYTES % MANUAL 16.0 % (20.0-50.0); MONOCYTES % MANUAL 23.0 % (2.0-8.0); NEUTROPHILS % MANUAL 60.0 % (45.0-75.0); PLATELET ESTIMATE NORMAL
== END 2025-03-21 15:25 | disposition home or self-care (01) | DRG 720 ==
LOC: ER 02:29 → MICUSO 04:45 → EDBD 04:45 → EDBEDREQTM 05:19 → EDBEDREQ 05:19 → EDBEDREQSVC 05:19 → ENRESERV 06:03 → 6WST 03-10 12:00 → UNDODISIN 03-10 17:41
PROVIDERS: ADMIT Internal Medicine; ATTEND Internal Medicine
PROC: 5A1935Z Respiratory Ventilation, Less than 24 Consecutive Hours (ICD-10-PCS; 2025-03-07)
PROC: 0BH17EZ Insertion of Endotracheal Airway into Trachea, Via Natural or Artificial Opening (ICD-10-PCS; 2025-03-07)
PROC: 02HV33Z Insertion of Infusion Device into Superior Vena Cava, Percutaneous Approach (ICD-10-PCS; principal; 2025-03-08)
PROC: B548ZZA Ultrasonography of Superior Vena Cava, Guidance (ICD-10-PCS; 2025-03-08)
DX: A41.9 Sepsis, unspecified organism (principal); G92.8 Other toxic encephalopathy; I21.4 Non-ST elevation (NSTEMI) myocardial infarction; E11.10 Type 2 diabetes mellitus with ketoacidosis without coma; J90 Pleural effusion, not elsewhere classified; E87.0 Hyperosmolality and hypernatremia; E83.39 Other disorders of phosphorus metabolism; E86.9 Volume depletion, unspecified; I48.0 Paroxysmal atrial fibrillation; N17.9 Acute kidney failure, unspecified; I12.9 Hypertensive chronic kidney disease with stage 1 through stage 4 chronic kidney disease, or unspecified chronic kidney disease; E11.22 Type 2 diabetes mellitus with diabetic chronic kidney disease; N18.9 Chronic kidney disease, unspecified; R56.9 Unspecified convulsions; E87.6 Hypokalemia; E87.1 Hypo-osmolality and hyponatremia; E87.8 Other disorders of electrolyte and fluid balance, not elsewhere classified; M25.422 Effusion, left elbow; Z20.822 Contact with and (suspected) exposure to COVID-19; R18.8 Other ascites; Z51.5 Encounter for palliative care; Z78.1 Physical restraint status; Z79.82 Long term (current) use of aspirin; Z79.899 Other long term (current) drug therapy
CPT/HCPCS: 36415; 36573; 36600; 71045; 71250; 73030; 73080; 73200; 80048; 80051; 80061; 80076; 80305; 80320; 81003; 82010; 82375; 82550; 82553; 82805; 82947; 82962; 83036; 83605; 83735; 83880; 83930; 84100; 84132; 84145; 84443; 84484; 84550; 85025; 85027; 87420; 87426; 87804; 93005; 93306; 93970; 93971; 94070; 94640; 94664; 94760; 96365; 96375; 97110; 97116; 97162; 97530; 99291; A4606; C1725; C1769; G0378; J0360; J1308; J1650; J1815; J1938; J1953; J2003; J2060; J2405; J2470; J2543; J3373; J3475; J3480; J3490; J7030; J7042; J7050; J7060; G0480